=== PATIENT | male | born 1950 | race Caucasian/White ===

== ENCOUNTER → 2017-09-04 | Outpatient (CLI) | payer MEDICARE ==
[~2017-09-04] MED LIST: ABILIFY10 MG; ASPIRIN 81MG TA81 MG PO; AVPAK AZITHROM250 MG PO; DOXYCYCLINE HY100 M1 PO; FLEXERIL10 MG PO; GABAPENTIN TAB600 MG PO; HYDRALAZINE50 MG PO; IBU-8800 MG PO; K-DUR 20MEQ TA20 MEQ PO; LISINOPRIL 10MG10 MG PO; LISINOPRIL 5MG T5 MG NG; LOPRESSOR 25MG.25 MG PO; LORTAB 5/500 501 TAB PO; MEDROL 4MG. DOSE4 MG PO; METOPROLOL TAR100 MG PO; MORPHINE SULFAT PO; OXYCODONE 5MG TA5 MG PO; PERCOCET 325 MG1 TA3 PO; PREDNISONE 20MG20 MG PO; PROVENTIL0.09 MG/A1 IH; ZANAFLEX 2MG TAB2 MG PO; ZOLOFT 50MG TAB50 MG PO
[2017-09-04 20:24] LABS: AMPHETAMINES/METAMPHETAMINES NEGATIVE ng/mL (<1000)
== END ==
LOC: LAB 18:29
PROVIDERS: Nurse Practitioner Family
DX: Z79.899 Other long term (current) drug therapy (principal)